=== PATIENT | male | born 1980 | race Asian ===

== ENCOUNTER 2017-02-13 13:29 | Outpatient (CLI) | payer OTHER ==
[2017-02-13 15:15] LABS: Hemoglobin 17.6 g/dL (14.0-18.0); Mean Corpuscular HGB CONC 34.2 g/dL (32.0-36.0); Mean Corpuscular Volume 99.6 fl (80.0-94.0); Mean Platelet Volume 7.1 fL (7.4-10.4); Platelet Count 276 thou/uL (130-400); RBC Distribution Width 11.3 % (11.5-14.5); Red Blood Cell (RBC) Count 5.17 mill/uL (4.70-6.10); White Blood Cell (WBC) Count 8.9 thou/uL (4.8-10.8)
[2017-02-13 15:30] LABS: Anion Gap 14 mmol/L (10-20); BUN (Urea Nitrogen) 21 mg/dL (8.9-20.6); Calc. Creatinine Clearance 0 mL/min (70-130); Calcium 10.2 mg/dL (7.8-10.44); Carbon Dioxide 29 mmol/L (22-29); Chloride 101 mmol/L (98-107); Estimated GFR-MDRD 71; Glucose 79 mg/dL (70-105); Sodium 139 mmol/L (136-145)
--- NOTE | 2017-03-09 16:38 | EKG ---
Test Reason : Blood Pressure : / mmHG Vent. Rate : 079 BPM Atrial Rate : 079 BPM P-R Int : 148 ms QRS Dur : 098 ms QT Int : 344 ms P-R-T Axes : 066 121 041 degrees QTc Int : 394 ms Normal sinus rhythm Possible Right ventricular hypertrophy Abnormal ECG No previous ECGs available Confirmed by DR. Alexander SKY ([id number]) on 03/09/2017 4:37:46 PM Referred By: DINA Confirmed By:DR. Alexander SKY
== END 2017-02-13 13:30 | disposition home or self-care (01) ==
LOC: LABBT 13:29
PROVIDERS: ATTEND Neurological Surgery
DX: Z01.818 Encounter for other preprocedural examination (principal); M54.12 Radiculopathy, cervical region
CPT/HCPCS: 80048; 85027; 93005; 93010

== ENCOUNTER 2017-02-14 05:51 | Day surgery (SDC) | payer OTHER ==
[2017-02-13 13:45] VITALS: BMI 25.0
[2017-02-14] MEDS ORDERED: CEFAZOLIN/Water 2 GM/20 ML SYRINGE ONE (06:23)
[2017-02-14] MEDS ORDERED: Sodium Chloride 0.9% 10 ML ONE (06:31)
[2017-02-14] MEDS ORDERED: Fentanyl 100 MCG/2 ML VIAL ONE ×3 (07:02→09:15)
[2017-02-14] MEDS ORDERED: Midazolam HCl 2 mg/2 ml Vial ONE ×2 (07:15)
[2017-02-14] MEDS ORDERED: HYDROmorphone 0.5 MG/0.5 ML SYRINGE ONE (09:25)
--- NOTE | 2017-02-14 09:59 | OP ---
DATE OF PROCEDURE: 02/14/2017 SURGEON: Merlin Marin M.D. FINISHING AREA OPERATOR: Terrence Singh PA-C PROCEDURE: Anterior cervical discectomy C5-6, interbody arthrodesis, intravertebral biomechanical de vice, local morselized autograft, demineralized bone matrix, anterior titanium instrumentation C5-6. PROCEDURE IN DETAIL: The patient was brought into the operating room, intubated. He was positioned supine with the head in modest extension on a gel-filled donut. Incision was made in the right prece rvical area and dissecting medial to the sternocleidomastoid muscle. We identified the anterior cerv ical spine and our level was confirmed by x-ray. We debrided anterior osteophytes, placed distractio n across the disc space and using the operating microscope and microdissection techniques, completely decompressed the intravertebral disc at the C5-6 level. Next, the bony endplates were decorticated for the purpose of arthrodesis and appropriately sized intravertebral biomechanical PEEK device was b rought into the field, filled with demineralized bone matrix and local morselized autograft, and ck ed into place securely at C5-6. Next, an anterior plate was brought in the field and secured to C5 a nd C6 using two 14 mm screws at each level. The wound was then extensively irrigated, immaculate hem ostasis was achieved and the wound was closed in anatomic layers.
[2017-02-14] MEDS ORDERED: HYDROcodone/Acetaminophen 5/325 mg Tablet ONE (10:48)
[2017-02-14] MEDS ORDERED: Ondansetron HCl/PF 4 MG/2 ML Vial ONE (12:58)
[2017-02-14] MEDS ORDERED: Lidocaine 1% PF 5 ML VIAL ONE (12:58)
[2017-02-14] MEDS ORDERED: Ketorolac Tromethamine 30 MG/ML VIAL ONE (12:58)
[2017-02-14] MEDS ORDERED: Dexamethasone 20 MG/5 ML VIAL ONE (12:58)
[2017-02-14] MEDS ORDERED: Propofol 200 MG/20 ML VIAL ONE (12:58)
[2017-02-14] MEDS ORDERED: Glycopyrrolate 0.2 MG/ML 5 ML SYRINGE ONE (12:58)
== END 2017-02-14 12:10 | disposition home or self-care (01) ==
LOC: SDC 05:51
PROVIDERS: ATTEND Neurological Surgery
PROC: 0RG20A0 Fusion of 2 or more Cervical Vertebral Joints with Interbody Fusion Device, Anterior Approach, Anterior Column, Open Approach (ICD-10-PCS; principal; 2017-02-14)
PROC: 0RG1070 Fusion of Cervical Vertebral Joint with Autologous Tissue Substitute, Anterior Approach, Anterior Column, Open Approach (ICD-10-PCS; principal; 2017-02-14)
DX: M54.12 Radiculopathy, cervical region (principal)
CPT/HCPCS: 76001; 96374; A4216; C1713; J1100; J1170; J1885; J2001; J2250; J2405; J2704; J3010; J3490